=== PATIENT | female | born 1970 | race Caucasian/White ===

== ENCOUNTER 2017-02-16 22:53 | Outpatient (CLI) | payer MEDICAID | END 2017-02-16 22:54 | disposition critical access hospital (66) | DX: Z00.8 Encounter for other general examination (principal) | CPT/HCPCS: A0425; A0429 ==

== ENCOUNTER 2017-02-16 23:10 | Emergency (ER) | payer MEDICAID ==
[2017-02-16] MEDS ORDERED: TETANUS/DIPHTHERIA/PERTUSSIS 0.5 ML SYRINGE IM ONE (23:51)
[2017-02-17] MEDS ORDERED: TETANUS/DIPHTHERIA/PERTUSSIS 0.5 ML SYRINGE IM ONE (00:17)
[2017-02-17] MEDS ORDERED: LORazepam 0.5 MG TABLET PO STA (10:14)
[2017-02-17] MEDS ORDERED: LORazepam 0.5 MG TABLET ONE (10:21)
[2017-02-17] MEDS ORDERED: LISINOPRIL 5 MG TABLET PO STA (11:18)
[2017-02-17] MEDS ORDERED: hydroCHLOROthiazide 25 MG TABLET PO STA (11:19)
[2017-02-17] MEDS ORDERED: LISINOPRIL 5 MG TABLET ONE (11:23)
[2017-02-17] MEDS ORDERED: hydroCHLOROthiazide 12.5 MG CAPSULE PO ONE (11:23)
== END 2017-02-17 12:04 | disposition home or self-care (01) ==
DX: S51.812A Laceration without foreign body of left forearm, initial encounter (principal); S51.811A Laceration without foreign body of right forearm, initial encounter; X78.9XXA Intentional self-harm by unspecified sharp object, initial encounter; F32.9 Major depressive disorder, single episode, unspecified; I10 Essential (primary) hypertension; J45.909 Unspecified asthma, uncomplicated; F17.200 Nicotine dependence, unspecified, uncomplicated; Z97.5 Presence of (intrauterine) contraceptive device
CPT/HCPCS: 36415; 80306; 80320; 81003; 99283; 99284; A9270